=== PATIENT | male | born 1950 | race Two or more races ===

== ENCOUNTER 2019-04-03 08:01 | Day surgery (SDC) | payer MEDICARE ==
[~2019-04-03] VITALS: Ht 172.7 cm; Wt 68.0 kg
[2019-04-03] VITALS (7 sets, daily range): BP systolic 96–110; BP diastolic 53–65
--- NOTE | 2019-04-03 08:08 | Short Stay Surgery H&P ---
History of Present Illness History of Present Illness Chief Complaint Upper and lower GI endoscopic screening HPI The Pen is a 69 year old male who was admitted on for Screening for upper and lower GI tract Review of Systems Cardiovascular: Reports: no symptoms Respiratory: Reports: no symptoms Skeletal: Reports: no symptoms Gastrointestinal: Reports: no symptoms Genitourinary: Reports: no symptoms Neurologic: Reports: no symptoms Hematologic: Reports: no symptoms Physical Exam Skin: normal HENT: normal Heart: normal Lungs: normal Abdomen: normal Extremities: normal Plan Plan of Care Upper and lower GI endoscopy with biopsy Preop Interventions None. Summary of Findings See the reports Attestation Are the patient's medical conditions optimized for surgery? Attestation Response: yes Ishaan Gamez MD Apr 03, 2019 08:08
--- NOTE | 2019-04-03 08:09 | Pre-Procedure Note/Attestation ---
Pre-Procedure Note/Attestation Complete Prior to Procedure Planned Procedure: left Procedure Narrative: Examiantion of the upper and the lower GI tract via endoscopy Indications for Procedure Pre-Operative Diagnosis: R/O gastritis/Cancer/polyps. Attestation I attest that I discussed the nature of the procedure; its benefits; risks and complications; and alternatives (and the risks and benefits of such alternatives ), prior to the procedure, with the patient (or the patient's legal community service representative). I attest that, if there was a reasonable possibility of needing a blood transfusion, the patient (or the patient's legal community service representative) was given the [facility] standardized written summary, pursuant to the Calvin Olivia Blood Safety Act ([place] Health and Safety Code # 1645, as amended). I attest that I re-evaluated the patient just prior to the surgery and that there has been no change in the patient's H&P, except as documented below: Ishaan Gamez MD Apr 03, 2019 08:09
[2019-04-03] MEDS ORDERED: NKM (08:34)
--- NOTE | 2019-04-03 08:37 | Anethesia Preoperative Eval ---
Anesthesia Pre-op PMH/ROS General Date of Evaluation: Apr 03, 2019 Time of Evaluation: 08:36 ASA Score: ASA 1 Mallampati Score Class I : Soft palate, uvula, fauces, pillars visible Class II: Soft palate, uvula, fauces visible Class III: Soft palate, base of uvula visible Class IV: Only hard plate visible Mallampati Classification: Class I Surgeon: Franco Diagnosis: colon screening Surgical Procedure: EGD, colonoscopy diagnostic Anesthesia History: none Family History: no anesthesia problems Medications: see eMAR Patient NPO?: Yes NPO Date: Apr 03, 2019 NPO Time: 00:00 Past Medical History Cardiovascular: Denies: HTN, CAD, [place], valve dz, arrhythmia, other Pulmonary: Denies: asthma, COPD, BIRANNA, other Gastrointestinal/Genitourinary: Reports: other - Hx of hepatits C; Denies: GERD, CRI, ESRD Neurologic/Psychiatric: Denies: dementia, CVA, depression/anxiety, TIA, other Endocrine: Denies: DM, hypothyroidism, steroids, other HEENT: Denies: cataract (L), cataract (R), glaucoma, [place] (L), [place] (R), other Hematology/Immune: Denies: anemia, DVT, bleeding disorder, other Musculoskeletal/Integumentary: Denies: OA, RA, DJD, DDD, edema, other PMH Narrative: as noted above PSxH Narrative: see H&P Anesthesia Pre-op Phys. Exam Physician Exam Last 24 Hour Vital Signs Date Time Temp Pulse Resp B/P (MAP) Pulse Ox O2 Delivery O2 Flow Rate FiO2 04/03/19 08:38 97.7 73 20 110/65 98 Room Air 04/03/19 08:35 Room Air Constitutional: NAD Neurologic: other - alert & oriented Cardiovascular: RRR Respiratory: CTA Gastrointestinal: S/NT/ND Airway Exam Mallampati Score: Class I MO: full Neck: FROM TMD: > 3 FB ROM: full Teeth: intact Dentures: no upper, no lower Anesthesia Pre-op A/P Risk Assessment & Plan Assessment: ASA 1, ok to proceed Plan: MAC Status Change Before Surgery: No Pre-Antibiotics Given Within 1 Hr of Incision: No Yanelis Vega CRNA Apr 03, 2019 08:37
[2019-04-03] MEDS ORDERED: Lidocaine 1% MPF 10mg/ml 5ml ONE (09:00)
[2019-04-03] MEDS ORDERED: LR 1000ml ONE (09:00)
[2019-04-03] MEDS ORDERED: Propofol 200mg/20ml IV ONE (09:00)
--- NOTE | 2019-04-03 09:12 | Immediate Post-Op Evaluation ---
Immediate Post-Op Evalulation Immediate Post-Op Evalulation Procedure: EGD, Colonoscopy Date of Evaluation: Apr 03, 2019 IV Fluids: LR 600 ML Blood Pressure Systolic: 102 Blood Pressure Diastolic: 55 Pulse Rate: 73 Respiratory Rate: 16 O2 Sat by Pulse Oximetry: 100 Temperature (Fahrenheit): 97.3 Pain Score (1-10): 0 Nausea: No Vomiting: No Complications none Patient Status: awake, patent Hydration Status: adequate Given Within 1 Hr of Incision: Yanelis Arnett CRNA Apr 03, 2019 09:12
--- NOTE | 2019-04-03 09:25 | Discharge Instructions ---
Discharge Instructions Discharge Instructions Follow up with: See the docotor next week in office/call for next For Congestive Heart Failure Reminder Report to your physician any weight gain of 5 pounds or more in one week. Ishaan Gamez MD Apr 03, 2019 09:25
--- NOTE | 2019-04-03 11:08 | 48 Hour Post Anesthesia Eval ---
Post Anesthesia Evaluation Procedure: EGD, Colonoscopy Date of Evaluation: Apr 03, 2019 Time of Evaluation: 11:07 Blood Pressure Systolic: 102 0: 57 Pulse Rate: 70 Respiratory Rate: 19 Temperature (Fahrenheit): 97.3 O2 Sat by Pulse Oximetry: 97 Airway: patent Nausea: No Vomiting: No Pain Intensity: 0 Hydration Status: adequate Cardiopulmonary Status: stable Mental Status/LOC: patient returned to baseline Follow-up Care/Observations: per GI Post-Anesthesia Complications: none Follow-up care needed: N/A Yanelis Vega CRNA Apr 03, 2019 11:08
--- NOTE | 2019-04-03 11:45 | Operative Note - Dictated ---
DATE OF OPERATION: 04/03/2019 SURGEON: Ishaan Gamez M.D. PROCEDURE: Esophagogastroduodenoscopy with biopsy and polypectomy. PREOPERATIVE DIAGNOSIS: Screening upper gastrointestinal endoscopy. POSTOPERATIVE DIAGNOSIS: Evidence of a small hyperplastic polypoid lesion in the stomach, removed by cold biopsy forceps, otherwise completely normal upper gastrointestinal endoscopy. Biopsy was taken per random from gastric body. MEDICATION USED: Per Ms. Yanelis Vega, PHYSICAL FITNESS TRAINER taker off hemp fiber. INSTRUMENT: GIF Olympus upper GI video endoscope. DESCRIPTION OF PROCEDURE: The patient after arriving an endoscopy unit, was told about risks and benefits of the procedure, which he accepted and signed informed consent. At this time, he was put on the left lateral decubitus position. After adequate IV sedation, the scope was gently passed through the cricopharyngeal area, was lodged into the upper esophagus and gradually advanced towards gastroesophageal junction. The entire length of esophagus looked normal. No evidence of varices, inflammatory process, ulceration, stricture, etc. noted. GE junction also looked normal without evidence of hiatal hernia or Mehta's mucosa. At this time, the scope was advanced into the stomach. Gastric cavity was distended with insufflation of air and gradually from the fundus and the body and the antrum. The stomach was examined revealing one small 2 to 3 mm hyperplastic polypoid lesions over the greater curvature midbody of the stomach, which was grabbed with cold biopsy forceps and totally removed. The rest of the stomach looked completely normal without any evidence of major gastritis, ulcers, polyps, etc. A retroflexion maneuver was also done and the area of the gastroesophageal junction was examined in a closer fashion, which revealed normal. At this time, the scope was gradually passed through the duodenum at the pyloric channel and duodenum. The first and second portion of duodenum were all within normal limits. Finally, the scope was pulled out and the procedure was terminated. The patient tolerated the procedure well. Ishaan Gamez M.D. DR: HETAL JOB#: [id number] CC:
--- NOTE | 2019-04-03 12:30 | Operative Note - Dictated ---
DATE OF OPERATION: 04/03/2019 SURGEON: Ishaan Gamez M.D. PROCEDURE: Total colonoscopy. PREOPERATIVE DIAGNOSIS: Screening colonoscopy. POSTOPERATIVE DIAGNOSES: 1. Diverticulosis of the left colon. 2. Minimal internal hemorrhoid and high redundancy of the colon, otherwise normal study up to the base of the cecum as examined. MEDICATION USED: Per hedis coordinator Ms. Yanelis VegaLAZARA. INSTRUMENT: GIF Olympus video colonoscope. DESCRIPTION OF PROCEDURE: The patient after arriving an endoscopy unit, was told about risks and benefits of the procedure, which he accepted and signed informed consent. He was then put on the left lateral decubitus position. After adequate IV sedation, the scope was gently passed through the anal area and careful examination of this section revealed minimal internal hemorrhoids that they were not friable and not major. A retroflexion maneuver was also applied in the rectum, which revealed no any abnormality in the rectal area. At this time, the scope was gradually passed through highly redundant left colon revealing diverticular lesions all along the left colon, but there was no any evidence of strictures, polyps, tumors, etc. Subsequently, the scope reached to the splenic flexure. From there, it was guided into the transverse colon, hepatic flexure, and finally reached to the right side of the colon all the way to the base of the cecum. All these areas however to be completely normal without any pathology found. The colon cleanup was excellent and at this time, after reaching to the base of the cecum, within 6 minutes, the scope was gradually pulled out and no other abnormalities except the diverticular lesions of the left colon seen as mentioned earlier. The patient tolerated the procedure well and left the endoscopy room in a good condition. Ishaan Gamez M.D. DR: HETAL JOB#: [id number] CC:
== END 2019-04-03 10:10 | disposition home or self-care (01) ==
LOC: GAS 08:01
DX: Z12.11 Encounter for screening for malignant neoplasm of colon (principal); K57.90 Diverticulosis of intestine, part unspecified, without perforation or abscess without bleeding; K64.8 Other hemorrhoids; Z86.19 Personal history of other infectious and parasitic diseases; K29.50 Unspecified chronic gastritis without bleeding; K31.7 Polyp of stomach and duodenum
CPT/HCPCS: 43239; G0121; J2704; J7120; 94003; 94150